=== PATIENT | female | born 1990 | race Native Hawaiian/Other Pacific Islander ===

== ENCOUNTER 2016-12-27 16:24 | Emergency (ER) | payer OTHER ==
[~2016-12-27] VITALS: Ht 162.6 cm; Wt 63.5 kg
[2016-12-27 18:40] VITALS: BP 118/78; TEMP 98
== END 2016-12-27 17:41 | disposition home or self-care (01) ==
LOC: ED 16:24
DX: S63.502A Unspecified sprain of left wrist, initial encounter (principal); R51 Headache; V43.52XA Car driver injured in collision with other type car in traffic accident, initial encounter
CPT/HCPCS: 99283